=== PATIENT | female | born 1990 | race Caucasian/White ===

== ENCOUNTER 2024-02-29 18:53 | Emergency (ER) | payer SELFPAY ==
[2024-02-29] MEDS ORDERED: LANTUS SOL100 UNIT/M (19:06)
[2024-02-29] MEDS ORDERED: PERCOCET 5/321 COMBO PO (19:07)
[2024-02-29] MEDS ORDERED: FLEXERIL5 M1 PO (19:07)
[2024-02-29] MEDS ORDERED: ONDANSETRON HCl 4 MG/2 ML SDV IV STA (19:21)
[2024-02-29] MEDS ORDERED: SODIUM CHLORIDE 0.9% 1,000 ML IV STA (19:21)
[2024-02-29] MEDS ORDERED: MORPHINE SULFATE 4 MG/ML VIAL IV STA (19:21)
[2024-02-29 20:25] LABS: URINE BILIRUBIN - DIPSTICK Negative (NEGATIVE); URINE BLOOD DIPSTICK Negative (NEGATIVE); URINE GLUCOSE - DIPSTICK Negative (NEGATIVE); URINE KETONE Negative (NEGATIVE); URINE NITRITE - DIPSTICK Negative (Negative); URINE PH 6.5 (4.5-8.0); URINE PROTEIN - DIPSTICK Negative (NEG-TRACE); URINE SPECIFIC GRAVITY 1.015; URINE UROBILINOGEN - DIPSTICK 0.2 E.U./dL (0.2)
[2024-02-29 20:26] LABS: URINE COLOR Yellow; URINE LEUK ESTERASE Small (NEGATIVE)
[2024-02-29 20:37] LABS: URINE RBC 0-2 RBC/hpf (0-5); URINE RENAL EPITHELIAL CELLS FEW hpf; URINE SQUAMOUS EPITHELIAL CELL FEW EPI/hpf (0-FEW)
[2024-02-29 21:47] LABS: BASO% 0.6 % (0-3); EOS% 0.8 % (0-8); HEMATOCRIT 36.4 % (37.0-47.0); HEMOGLOBIN 11.6 g/dl (12.0-16.0); IMMATURE GRANULOCYTES 0.2 % (0.0-5.0); LYMPH% 22.9 % (15-41); MEAN CELL VOLUME 80.5 fL CALC (80.0-100.0); MEAN CORPUSCULAR HGB 25.7 pG CALC (26.0-32.0); MEAN CORPUSCULAR HGB CONC 31.9 g/dL CAL (32.0-36.0); MONO% 7.5 % (2-13); NEUT# 3.35 thou/uL (2.00-7.15); RED BLOOD COUNT 4.52 mill/uL (4.20-5.60); RED CELL DISTRI WIDTH 15.1 % (11.5-15.5)
[2024-02-29 22:10] LABS: ALBUMIN 4.9 g/dL (3.2-5.0); BILIRUBIN, TOTAL 0.7 mg/dL (0.02-1.3); CREATININE 1.3 mg/dL (0.5-1.0); POTASSIUM 3.9 mmol/l (3.5-5.1); TOTAL PROTEIN 7.9 g/dL (6.3-8.2)
[2024-03-01] MEDS ORDERED: MORPHINE SULFATE 4 MG/ML VIAL IV ONE (00:25)
[2024-03-01] MEDS ORDERED: ONDANSETRON HCl 4 MG/2 ML SDV IV ONE (00:25)
[2024-03-01] MEDS ORDERED: ALUM & MAG HYDROX-SIMETHICONE 30 ML PO ONE (01:15)
[2024-03-01 01:55] VITALS: BP 114/74
== END 2024-03-01 01:55 | disposition home or self-care (01) | DRG 392 ==
LOC: ED 18:53
PROVIDERS: Internal Medicine
DX: R10.9 Unspecified abdominal pain (principal); E11.9 Type 2 diabetes mellitus without complications; Z79.4 Long term (current) use of insulin; Z90.49 Acquired absence of other specified parts of digestive tract; Z90.710 Acquired absence of both cervix and uterus